=== PATIENT | female | born 1990 | race Caucasian/White ===

== ENCOUNTER 2018-03-26 17:28 | Emergency (ER) | payer OTHER ==
[~2018-03-26] VITALS: Ht 162.6 cm; Wt 67.8 kg
[2018-03-26 17:37] VITALS: BP 117/73
[2018-03-26] MEDS ORDERED: IBUPROFEN 200 MG TABLET ONE (19:12)
[2018-03-26] MEDS ORDERED: IBUPROFEN 200 MG TABLET PO ONE (19:30)
== END 2018-03-26 20:40 | disposition home or self-care (01) ==
LOC: ED 20:30
DX: G89.11 Acute pain due to trauma (principal); M25.562 Pain in left knee; W11.XXXA Fall on and from ladder, initial encounter; Y93.89 Activity, other specified; Y99.0 Civilian activity done for income or pay; Y92.69 Other specified industrial and construction area as the place of occurrence of the external cause
CPT/HCPCS: 99284

== ENCOUNTER 2019-09-03 04:21 | Emergency (ER) | payer OTHER ==
[~2019-09-03] VITALS: Ht 162.6 cm; Wt 70.9 kg
[2019-09-03] MEDS ORDERED: KETOROLAC 30 MG/1 ML ONE (05:00)
[2019-09-03] MEDS ORDERED: FAMOTIDINE 20 MG/2 ML IVPush ONE (05:00)
[2019-09-03] MEDS ORDERED: KETOROLAC 30 MG/1 ML IVPush ONE (05:00)
[2019-09-03] MEDS ORDERED: SODIUM CHLORIDE 0.9% 1,000ML IVBOLUS ONE (05:00)
[2019-09-03] MEDS ORDERED: ONDANSETRON 2MG/ML, 2ML IVPush ONE (05:00)
[2019-09-03] MEDS ORDERED: ONDANSETRON 2MG/ML, 2ML ONE (05:00)
[2019-09-03] MEDS ORDERED: FAMOTIDINE 20 MG/2 ML ONE (05:00)
--- NOTE | 2019-09-03 05:27 | NUR ---
PIV placed and medicated per emar. IVF initiated. pt to US at this time.
[2019-09-03 05:32] LABS: BASOPHILS # (AUTO) 0.02 x10^3/uL (0-0.1); BASOPHILS % (AUTO) 0 % (0-1); EOSINOPHILS # (AUTO) 0.05 x10^3/uL (0-0.4); EOSINOPHILS % (AUTO) 1 % (1-7); LYMPHOCYTES # (AUTO) 1.09 x10^3/uL (1-3.4); LYMPHOCYTES % (AUTO) 14 % (22-44); MD NO; MEAN CORPUSCULAR HEMOGLOBIN 30.4 pg (27.0-34.8); MEAN CORPUSCULAR HGB CONC 33.8 g/dL (32.4-35.8); MEAN CORPUSCULAR VOLUME 89.8 fL (80-100); MEAN PLATELET VOLUME 7.7 fL (7.4-10.4); MONOCYTES # (AUTO) 0.41 x10^3/uL (0.2-0.8); MONOCYTES % (AUTO) 5 % (2-9); NEUTROPHILS # (AUTO) 6.48 x10^3/uL (1.8-6.8); NEUTROPHILS % (AUTO) 81 % (42-75); PLATELET COUNT 280 x10^3/uL (130-400); RED BLOOD COUNT 5.23 x10^6/uL (3.82-5.3); RED CELL DISTRIBUTION WIDTH 12.3 % (9.6-15.2)
[2019-09-03 05:40] LABS: ALANINE AMINOTRANSFERASE 19 U/L (12-78); ALBUMIN 4.6 g/dL (3.4-5.0); ANION GAP 5 mmol/L (5-15); CALCIUM 9.3 mg/dL (8.5-10.1); CHLORIDE 106 mmol/L (98-107); CREATININE 0.84 mg/dL (0.55-1.02)
[2019-09-03 05:42] LABS: MICROSCOPIC AUTO
[2019-09-03 05:43] LABS: CULTURE INDICATED? NO
[2019-09-03 05:44] LABS: ALKALINE PHOSPHATASE 83 U/L (45-117); BILIRUBIN,TOTAL 0.9 mg/dL (0.2-1.0); TOTAL PROTEIN 8.5 g/dL (6.4-8.2)
[2019-09-03] MEDS ORDERED: METOCLOPRAMIDE 5 MG/ML, 2ML ONE (06:44)
--- NOTE | 2019-09-03 06:47 | NUR ---
PT CONTINUES TO HAVE NAUSEA, BUT STATES PAIN RELIEF. PT MEDICATED FOR NAUSEA.
[2019-09-03] MEDS ORDERED: METOCLOPRAMIDE 5 MG/ML, 2ML IVPush ONE (07:00)
--- NOTE | 2019-09-03 07:00 | NUR ---
REPORT RECEIVED FROM ALEXANDRIA ESPINOZA.
--- NOTE | 2019-09-03 07:38 | NUR ---
PT DOING PO CHALENGE AT THIS TIME.
[2019-09-03 07:55] VITALS: BP 108/58
--- NOTE | 2019-09-03 08:15 | NUR ---
Patient given discharge instructions and they have confirmed that they understand the instructions. Patient ambulatory with steady gait.
== END 2019-09-03 08:16 | disposition home or self-care (01) ==
LOC: ED 05:53
DX: A08.4 Viral intestinal infection, unspecified (principal); R11.2 Nausea with vomiting, unspecified
CPT/HCPCS: 36415; 76700; 80053; 81001; 83690; 84703; 85025; 96361; 96374; 96375; 99284; J1885; J2405; J2765; J3490; J7030